=== PATIENT | male | born 1985 | race African-American/Black ===

== ENCOUNTER → 2024-09-27 | Outpatient (CLI) | payer BC, SELFPAY ==
--- NOTE | 2024-09-27 16:15 | XR_ITS ---
Examination: PA lateral chest 2 views TECHNIQUE: Upright PA lateral chest 2 views Exam date and time: September 27, 2024 1802 hours Comparison July 27, 2005 INDICATIONS: Coughing acute bronchitis 4 weeks FINDINGS: Lordotic chest Normal heart size No pneumonia or pulmonary edema IMPRESSION: No active disease
[2024-09-27 17:35] LABS: Basophils # (Auto) 0.1 Thou/mm3 (0.0-0.2); Basophils % (Auto) 1 % (0-2.5); Eosinophils # (Auto) 0.1 Thou/mm3 (0.0-0.5); Eosinophils % (Auto) 1 % (0-10); Hematocrit 45.4 % (41.0-53.0); Hemoglobin 16.1 g/dL (13.5-16.0); Immature Granulocytes % (Auto) 0 % (0-0); Immature Granulocytes Auto 0.03 Thou/mm3 (0.00-0.00); Lymphocytes # (Auto) 2.4 Thou/mm3 (1.0-4.8); Lymphocytes % (Auto) 21 % (10-50); Mean Corpuscular HGB Conc 35.5 g/dl (31.0-37.0); Mean Corpuscular Hemoglobin 32.5 pg (25.0-35.0); Mean Corpuscular Volume 92 fL (80-100); Monocytes # (Auto) 0.5 Thou/mm3 (0.0-0.8); Monocytes % (Auto) 4 % (0-12); Neutrophils # (Auto) 8.5 Thou/mm3 (1.8-7.7); Neutrophils % (Auto) 73 % (37-80); Nucleated Red Blood Cell % 0 /100 WBC (0); Platelet Count 303 Thou/mm3 (140-440); RDW Standard Deviation 38.7 fL (35.1-43.9); Red Blood Count 4.96 Miln/mm3 (4.50-5.90); White Blood Count 11.6 Thou/mm3 (3.8-10.6)
[2024-09-27 17:45] LABS: PSA Medicare Annual Scrn 0.28 ng/mL (0-4.00)
[2024-09-27 17:48] LABS: Glucose Estimated Average 214 mg/dL (80-131); Hemoglobin A1C 9.1 % Hgb (4.8-6.0)
[2024-09-27 17:49] LABS: Creatinine MALB Rnd Ur 49 mg/dL (30-125); Microalbumin Creat Ratio 153 mg/gCrea (<30); Microalbumin, Random Urine 75 mg/L (0-300)
[2024-09-27 17:49] LABS: Alanine Aminotransferase 29 U/L (10-49); Albumin, Serum 4.9 gm/dL (3.5-5.0); Albumin/Globulin Ratio 2.3 (1.2-2.2); Alkaline Phosphatase 109 U/L (46-116); Anion Gap 8 (7-16); Aspartate Amino Transferase 15 U/L (0-34); BUN/Creatinine Ratio 10 Ratio (12-20); Bilirubin,Total 1.6 mg/dL (0.3-1.2); Blood Urea Nitrogen 11 mg/dL (9-23); Carbon Dioxide 28.5 mMol/L (20.0-31.0); Cardiac Risk Estimate 6.2 RATIO (4.0-6.7); Chloride 97 mMol/L (98-107); Cholesterol 268 mg/dL (132-200); Creatinine (Component) 1.1 mg/dL (0.6-1.3); Globulin 2.1 gm/dL (2.3-3.5); Glucose 221 mg/dL (74-106); HDL Cholesterol 43 mg/dL (40-60); Magnesium 1.8 mg/dL (1.6-2.6); Osmolality,Calculated 272 (275-295); Potassium 3.8 mMol/L (3.4-5.1); Sodium 133 mMol/L (136-145); Triglycerides 508 mg/dL (30-150); eGFR > 60 See Note
[2024-09-27 17:55] LABS: Folate > 24.00 ng/mL (>5.38); Vitamin B12 591 pg/mL (211-911); Vitamin D 25 Hydroxy Total 20.1 ng/mL (7.3-40.2)
[2024-10-06 13:38] LABS: Testosterone, Free,Dialysis 39.2 pg/mL (35.0-155.0); Testosterone, Total, Dialysis 168 ng/dL (250-1100); Vitamin A (Retinol)* 66 mcg/dL (38-98); Zinc, Plasma* 69 mcg/dL (60-130)
== END | disposition home or self-care (01) ==
LOC: COPL 15:56
PROVIDERS: PCP Nurse Practitioner Family; Referring Provider Nurse Practitioner Family; Visit Provider Radiology Diagnostic Radiology
DX: J20.9 Acute bronchitis, unspecified (principal); R79.9 Abnormal finding of blood chemistry, unspecified; E29.1 Testicular hypofunction; R73.03 Prediabetes; I10 Essential (primary) hypertension; E55.9 Vitamin D deficiency, unspecified; Z12.5 Encounter for screening for malignant neoplasm of prostate
CPT/HCPCS: 36415; 71046; 80053; 80061; 82043; 82306; 82570; 82607; 82746; 83036; 83735; 84153; 84402; 84403; 84590; 84630; 85025; G0103

== ENCOUNTER → 2024-10-03 | Outpatient (CLI) | payer BC, SELFPAY ==
[2024-10-09 06:56] LABS: Fecal Globin Result NOT DETECTED (NOT DETECTED)
== END | disposition home or self-care (01) ==
PROVIDERS: Referring Provider Nurse Practitioner Family; Visit Provider Nurse Practitioner Family
DX: Z12.11 Encounter for screening for malignant neoplasm of colon (principal)
CPT/HCPCS: 82274; G0328

== ENCOUNTER → 2025-01-25 | Outpatient (CLI) | payer BC, SELFPAY ==
[2025-01-25 16:51] LABS: Basophils # (Auto) 0.1 Thou/mm3 (0.0-0.2); Basophils % (Auto) 1 % (0-2.5); Eosinophils # (Auto) 0.2 Thou/mm3 (0.0-0.5); Eosinophils % (Auto) 2 % (0-10); Hemoglobin 16.9 g/dL (13.5-16.0); Immature Granulocytes % (Auto) 0 % (0-0); Immature Granulocytes Auto 0.05 Thou/mm3 (0.00-0.00); Lymphocytes # (Auto) 2.4 Thou/mm3 (1.0-4.8); Lymphocytes % (Auto) 21 % (10-50); Mean Corpuscular HGB Conc 34.5 g/dl (31.0-37.0); Mean Corpuscular Hemoglobin 32.5 pg (25.0-35.0); Mean Corpuscular Volume 94 fL (80-100); Monocytes # (Auto) 0.6 Thou/mm3 (0.0-0.8); Monocytes % (Auto) 5 % (0-12); Neutrophils # (Auto) 8.3 Thou/mm3 (1.8-7.7); Neutrophils % (Auto) 72 % (37-80); Nucleated Red Blood Cell % 0 /100 WBC (0); Platelet Count 307 Thou/mm3 (140-440); RDW Standard Deviation 40.2 fL (35.1-43.9); White Blood Count 11.6 Thou/mm3 (3.8-10.6)
[2025-01-25 17:10] LABS: Glucose Estimated Average 160 mg/dL (80-131); Hemoglobin A1C 7.2 % Hgb (4.8-6.0)
[2025-01-25 17:15] LABS: Alanine Aminotransferase 23 U/L (10-49); Albumin, Serum 4.5 gm/dL (3.5-5.0); Albumin/Globulin Ratio 2.1 (1.2-2.2); Alkaline Phosphatase 74 U/L (46-116); Anion Gap 8 (7-16); Aspartate Amino Transferase 16 U/L (0-34); BUN/Creatinine Ratio 9 Ratio (12-20); Bilirubin,Total 1.8 mg/dL (0.3-1.2); Blood Urea Nitrogen 11 mg/dL (9-23); Calcium 9.6 mg/dL (8.3-10.6); Calcium (Corrected) 9.6 mg/dL (8.5-10.1); Carbon Dioxide 29.3 mMol/L (20.0-31.0); Cardiac Risk Estimate 6.2 RATIO (4.0-6.7); Chloride 103 mMol/L (98-107); Cholesterol 222 mg/dL (132-200); Creatinine (Component) 1.2 mg/dL (0.6-1.3); Globulin 2.1 gm/dL (2.3-3.5); Glucose 144 mg/dL (74-106); HDL Cholesterol 36 mg/dL (40-60); LDL Cholesterol,Calculated 120 mg/dL (0-130); Osmolality,Calculated 281 (275-295); Potassium 4.2 mMol/L (3.4-5.1); Sodium 140 mMol/L (136-145); Thyroid Stimulating Hormone 1.63 uIU/mL (0.55-4.78); Total Protein 6.6 gm/dL (5.7-8.2); Triglycerides 331 mg/dL (30-150); Vitamin D 25 Hydroxy Total 24.9 ng/mL (7.3-40.2); eGFR > 60 See Note
[2025-01-25 17:33] LABS: Creatinine MALB Rnd Ur 63 mg/dL (30-125); Microalbumin Creat Ratio 171 mg/gCrea (<30); Microalbumin, Random Urine 108 mg/L (0-300)
[2025-02-01 07:25] LABS: Testosterone, Free,Dialysis 229.4 pg/mL (35.0-155.0); Testosterone, Total, Dialysis 766 ng/dL (250-1100)
== END | disposition home or self-care (01) ==
LOC: COPL 15:40
PROVIDERS: PCP Family Medicine; Referring Provider Nurse Practitioner Family; Visit Provider Nurse Practitioner Family
DX: E29.1 Testicular hypofunction (principal); R73.03 Prediabetes; I10 Essential (primary) hypertension; E55.9 Vitamin D deficiency, unspecified
CPT/HCPCS: 36415; 80053; 80061; 82043; 82306; 82570; 83036; 84402; 84403; 84436; 84443; 85025

== ENCOUNTER → 2025-05-16 | Outpatient (CLI) | payer BC, SELFPAY ==
--- NOTE | 2025-05-16 16:09 | XR_ITS ---
Shoulder bilateral, 6 views Technique: Shoulder AP internal rotation, AP external rotation, Y view each shoulder total 6 views. Exam date and time :May 16, 2025, 1609 hours INDICATIONS: Shoulder pain 3 weeks. 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
[2025-05-16 17:54] LABS: Glucose Estimated Average 123 mg/dL (80-131); Hemoglobin A1C 5.9 % Hgb (4.8-6.0)
[2025-05-16 17:57] LABS: Cardiac Risk Estimate 3.4 RATIO (4.0-6.7); Cholesterol 196 mg/dL (132-200); HDL Cholesterol 57 mg/dL (40-60); LDL Cholesterol,Calculated 118 mg/dL (0-130); Triglycerides 104 mg/dL (30-150)
== END | disposition home or self-care (01) ==
LOC: CDIM 15:54 → COPL 16:26
PROVIDERS: PCP Nurse Practitioner Family; Referring Provider Nurse Practitioner Family; Visit Provider Radiology Diagnostic Radiology
DX: M19.012 Primary osteoarthritis, left shoulder (principal); M19.011 Primary osteoarthritis, right shoulder; E78.5 Hyperlipidemia, unspecified
CPT/HCPCS: 36415; 73030; 80061; 83036

== ENCOUNTER → 2025-08-14 | Outpatient (CLI) | payer BC, SELFPAY ==
[2025-08-14 16:43] LABS: Glucose Estimated Average 103 mg/dL (80-131); Hemoglobin A1C 5.2 % Hgb (4.8-6.0)
== END | disposition home or self-care (01) ==
LOC: COPL 15:42
PROVIDERS: PCP Nurse Practitioner Family; Referring Provider Nurse Practitioner Family; Visit Provider Nurse Practitioner Family
DX: E11.65 Type 2 diabetes mellitus with hyperglycemia (principal)
CPT/HCPCS: 36415; 83036

== ENCOUNTER → 2025-09-17 | Outpatient (CLI) | payer BC, SELFPAY ==
[2025-09-17 16:44] LABS: Basophils # (Auto) 0.1 Thou/mm3 (0.0-0.2); Basophils % (Auto) 1 % (0-2.5); Eosinophils # (Auto) 0.1 Thou/mm3 (0.0-0.5); Eosinophils % (Auto) 1 % (0-10); Hematocrit 46.1 % (41.0-53.0); Hemoglobin 15.6 g/dL (13.5-16.0); Immature Granulocytes Auto 0.04 Thou/mm3 (0.00-0.00); Lymphocytes # (Auto) 2.4 Thou/mm3 (1.0-4.8); Lymphocytes % (Auto) 24 % (10-50); Mean Corpuscular HGB Conc 33.8 g/dl (31.0-37.0); Mean Corpuscular Hemoglobin 32.6 pg (25.0-35.0); Mean Corpuscular Volume 96 fL (80-100); Monocytes # (Auto) 0.5 Thou/mm3 (0.0-0.8); Monocytes % (Auto) 5 % (0-12); Neutrophils # (Auto) 6.9 Thou/mm3 (1.8-7.7); Neutrophils % (Auto) 69 % (37-80); Nucleated Red Blood Cell # 0.00 Thou/mm3 (0.00-0.00); Nucleated Red Blood Cell % 0 /100 WBC (0); Platelet Count 274 Thou/mm3 (140-440); RDW Standard Deviation 42.4 fL (35.1-43.9); Red Blood Count 4.78 Miln/mm3 (4.50-5.90); White Blood Count 10.0 Thou/mm3 (3.8-10.6)
[2025-09-17 17:17] LABS: Alanine Aminotransferase 21 U/L (10-49); Albumin, Serum 4.9 gm/dL (3.5-5.0); Albumin/Globulin Ratio 2.3 (1.2-2.2); Alkaline Phosphatase 77 U/L (46-116); Anion Gap 12 (7-16); Aspartate Amino Transferase 23 U/L (0-34); BUN/Creatinine Ratio 9 Ratio (12-20); Bilirubin,Total 1.8 mg/dL (0.3-1.2); Blood Urea Nitrogen 8 mg/dL (9-23); Calcium 9.6 mg/dL (8.3-10.6); Calcium (Corrected) 9.6 mg/dL (8.5-10.1); Carbon Dioxide 27.2 mMol/L (20.0-31.0); Chloride 101 mMol/L (98-107); Creatinine (Component) 0.9 mg/dL (0.6-1.3); Globulin 2.1 gm/dL (2.3-3.5); Glucose 114 mg/dL (74-106); Osmolality,Calculated 278 (275-295); Potassium 3.4 mMol/L (3.4-5.1); Sodium 140 mMol/L (136-145); Total Protein 7.0 gm/dL (5.7-8.2); eGFR > 60 See Note
[2025-09-24 06:44] LABS: Albumin 4.6 g/dL (3.6-5.1); DHEA Sulfate* 124 mcg/dL (70-495); Estradiol, Ultrasensitive* 47 pg/mL (< OR = 29); Progesterone,LC/MS* <0.1 ng/mL (< OR = 0.2); SHBG 10 nmol/L (10-50); Testosterone, Bioavailable 201.2 ng/dL (110.0-575.0); Testosterone, Free 95.8 pg/mL (46.0-224.0); Testosterone,Total 345 ng/dL (250-1100)
== END | disposition home or self-care (01) ==
LOC: COPL 15:51
PROVIDERS: PCP Nurse Practitioner Family; Referring Provider Nurse Practitioner Family; Visit Provider Nurse Practitioner Family
DX: I10 Essential (primary) hypertension (principal); E29.1 Testicular hypofunction
CPT/HCPCS: 36415; 80053; 82040; 82627; 82670; 84144; 84270; 84403; 85025